=== PATIENT | female | born 1985 | race Two or more races ===

== ENCOUNTER 2024-06-05 12:23 | Outpatient (CLI) | payer OTHER | END 2024-06-05 12:33 | disposition home or self-care (01) | LOC: RAD 12:23 | PROVIDERS: ATTEND Orthopaedic Surgery | DX: M87.051 Idiopathic aseptic necrosis of right femur (principal); M87.052 Idiopathic aseptic necrosis of left femur ==

== ENCOUNTER 2024-07-07 06:24 | Outpatient (CLI) | payer OTHER | END 2024-07-07 06:25 | disposition home or self-care (01) | LOC: LAB 06:24 → EKG 06:24 → LAB 06:25 | PROVIDERS: ATTEND Orthopaedic Surgery | DX: M87.051 Idiopathic aseptic necrosis of right femur (principal); I10 Essential (primary) hypertension; Z76.89 Persons encountering health services in other specified circumstances ==

== ENCOUNTER 2024-07-10 09:45 | Outpatient (CLI) | payer OTHER | END 2024-07-10 09:46 | disposition home or self-care (01) | LOC: NUCLEAR 09:45 | PROVIDERS: ATTEND Orthopaedic Surgery | DX: I73.89 Other specified peripheral vascular diseases (principal) ==

== ENCOUNTER 2024-08-15 07:10 | Outpatient (CLI) | payer OTHER | END 2024-08-15 07:12 | disposition home or self-care (01) | LOC: RAD 07:10 | PROVIDERS: ATTEND Orthopaedic Surgery | DX: Z76.89 Persons encountering health services in other specified circumstances (principal) ==

== ENCOUNTER 2024-08-15 08:05 | Outpatient (CLI) | payer OTHER | END 2024-08-15 11:46 | disposition home or self-care (01) | LOC: EKG 08:05 | PROVIDERS: ATTEND Orthopaedic Surgery | DX: I10 Essential (primary) hypertension (principal) ==

== ENCOUNTER 2024-08-27 10:45 | Inpatient (IN) | payer OTHER ==
[~2024-08-27] VITALS: Ht 152.4 cm; Wt 106.6 kg
[2024-08-27 12:52] VITALS: BP 109/74
[2024-09-08] MEDS ORDERED: NAFCILLIN SODIUM 2,000 MG VIAL ONE (08:59)
[2024-09-08] MEDS ORDERED: TRANEXAMIC ACID 100MG/1ML (1000MG) AMPUL IV ONE (08:59)
[2024-09-08] MEDS ORDERED: VANCOMYCIN HCL 1,000 MG VIAL ONE (10:36)
[2024-09-08] MEDS ORDERED: SODIUM CHLORIDE 0.45 % 1,000 ML IV SCH (14:30)
[2024-09-08] MEDS ORDERED: ONDANSETRON 4 MG TAB.RAPDIS PO PRN (14:30)
[2024-09-08] MEDS ORDERED: TRAMADOL HCL 50 MG TABLET PO PRN (14:30)
[2024-09-08] MEDS ORDERED: PROMETHAZINE HCL 50 MG/ML AMPUL IM PRN (14:30)
[2024-09-08] MEDS ORDERED: MEPERIDINE HCL/PF 50 MG/ML VIAL IM PRN (14:30)
[2024-09-08] MEDS ORDERED: ONDANSETRON HCL 2 MG/ML VIAL IV PRN (14:30)
[2024-09-08] MEDS ORDERED: SUGAMMADEX SODIUM 200 MG/2 ML VIAL IV ONE (14:34)
[2024-09-08] MEDS ORDERED: SODIUM CHLORIDE 0.9% IV SCH (17:00)
[2024-09-08] MEDS ORDERED: PANTOPRAZOLE SODIUM 40 MG TABLET.DR PO SCH (17:00)
[2024-09-08] MEDS ORDERED: NAFCILLIN SODIUM IV SCH (17:00)
[2024-09-08] MEDS ORDERED: CELECOXIB 200 MG CAPSULE PO SCH (17:00)
[2024-09-08] MEDS ORDERED: ACETAMINOPHEN 325 MG TABLET PO SCH (17:00)
[2024-09-08 20:08] LABS: BASO % 0.2 % (0.1-1.2); HEMATOCRIT 30.7 % (34.1-44.9); HEMOGLOBIN 10.6 g/dL (11.2-15.7); LYMPH # 0.61 (1.18-3.74); MEAN CORPUSCULAR HEMOGLOBIN 29.6 pg (25.6-32.2); MONO # 0.77 (0.24-0.82); MONO % 6.3 % (4.7-12.5); NEUT # 10.68 (1.56-6.13); NEUT % 88.2 % (34.0-71.1); PLATELET COUNT 205 K/uL (163-369); RED BLOOD COUNT 3.58 M/uL (3.93-5.22)
[2024-09-08 20:17] VITALS: BP 85/60
[2024-09-08] MEDS ORDERED: KETOROLAC TROMETHAMINE 10 MG TABLET PO SCH (21:00)
[2024-09-09] VITALS: BP 99/64
[2024-09-09] MEDS ORDERED: SODIUM CL 0.9% 100 ML IV.SOLN IV ONE ×2 (00:12→08:51)
[2024-09-09 05:00] VITALS: BP 90/60
[2024-09-09 07:35] LABS: BASO % 0.1 % (0.1-1.2); EOS # 0.02 (0.04-0.54); EOS % 0.2 % (0.7-7.0); HEMATOCRIT 28.1 % (34.1-44.9); HEMOGLOBIN 9.8 g/dL (11.2-15.7); LYMPH # 1.06 (1.18-3.74); MONO # 0.67 (0.24-0.82); MONO % 8.2 % (4.7-12.5); NEUT # 6.37 (1.56-6.13); NEUT % 78.1 % (34.0-71.1); PLATELET COUNT 206 K/uL (163-369); RED BLOOD COUNT 3.27 M/uL (3.93-5.22); RED CELL DISTRIBUTION WIDTH 13.1 % (11.6-14.4)
[2024-09-09 08:00] VITALS: BP 110/70
[2024-09-09] MEDS ORDERED: RIVAROXABAN 10 MG TAB PO SCH (09:00)
[2024-09-09] MEDS ORDERED: IRON FUM,PS/FOLIC/BCOMP,C NO.9 1 CAP CAPSULE PO NR (14:30)
[2024-09-09 14:36] LABS: COVID-19 AG NEGATIVE (NEGATIVE)
[2024-09-09 15:09] LABS: ALBUMIN 3.2 gm/dL (3.4-5.0); BILIRUBIN TOTAL 0.82 mg/dL (0.3-1.2); CALCIUM 7.7 mg/dL (8.5-10.1); CREATININE SERUM 0.92 mg/dL (0.55-1.02); GFR 68.69; GLOBULINA 3.6 G/DL (2.4-3.5); POTASSIUM 3.65 mEq/L (3.5-5.1); TOTAL PROTEIN 6.8 gm/dL (6.4-8.2)
[2024-09-09 16:33] VITALS: BP 135/65
[2024-09-09] MEDS ORDERED: ROSUVASTATIN CALCIUM 20 MG TABLET PO SCH (17:00)
[2024-09-09] MEDS ORDERED: BUSPIRONE HCL 5 MG TABLET PO SCH (17:00)
[2024-09-09] MEDS ORDERED: SOD FERRIC GLUC COMPLX/SUCROSE 125 MG in 0.9 % SODIUM CHLORIDE 100 ML IV SCH (17:00)
[2024-09-09] MEDS ORDERED: FLUOXETINE HCL 20 MG CAPSULE PO SCH (17:00)
[2024-09-10] VITALS: BP 100/60
[2024-09-10] MEDS ORDERED: SODIUM CL 0.9% 100 ML IV.SOLN IV ONE ×2 (02:46→02:47)
[2024-09-10 06:47] LABS: BASO % 0.1 % (0.1-1.2); EOS # 0.06 (0.04-0.54); EOS % 0.6 % (0.7-7.0); HEMOGLOBIN 9.1 g/dL (11.2-15.7); LYMPH # 0.98 (1.18-3.74); LYMPH % 10.3 % (19.3-53.1); MEAN CORPUSCULAR HEMOGLOBIN 29.4 pg (25.6-32.2); MONO # 0.83 (0.24-0.82); MONO % 8.7 % (4.7-12.5); NEUT # 7.65 (1.56-6.13); PLATELET COUNT 215 K/uL (163-369); RED BLOOD COUNT 3.09 M/uL (3.93-5.22); RED CELL DISTRIBUTION WIDTH 13.3 % (11.6-14.4)
[2024-09-10 06:55] LABS: HEMATOCRIT 26.5 % (34.1-44.9)
[2024-09-10 09:00] VITALS: BP 121/62
[2024-09-10] MEDS ORDERED: SENNA/DOCUSATE SODIUM 1 TAB TABLET PO SCH (09:00)
[2024-09-10] MEDS ORDERED: IRON FUM,PS/FOLIC/BCOMP,C NO.9 1 CAP CAPSULE PO SCH (09:00)
== END 2024-09-10 10:28 | disposition home or self-care (01) | DRG 470 ==
LOC: SURH 10:45 → OB/GYN 09-08 08:31 → O/R 09-08 08:31 → OB/GYN 09-08 15:31
PROVIDERS: ADMIT Orthopaedic Surgery; ATTEND Orthopaedic Surgery
PROC: 0SRB06Z Replacement of Left Hip Joint with Oxidized Zirconium on Polyethylene Synthetic Substitute, Open Approach (ICD-10-PCS; principal; 2024-09-08 09:00)
DX: M16.12 Unilateral primary osteoarthritis, left hip (principal); D62 Acute posthemorrhagic anemia; E78.5 Hyperlipidemia, unspecified